=== PATIENT | female | born 1975 | race Two or more races ===

== ENCOUNTER 2018-10-23 10:43 | Emergency (ER) | payer MEDICAID ==
[~2018-10-23] VITALS: Ht 152.4 cm; Wt 63.3 kg
[~2018-10-23 10:43] MED LIST: OMEP40CA37 PO
[2018-10-23 11:34] LABS: CLARITY,URINE SLIGHTLY CLOUDY (Clear); COLOR,URINE YELLOW (Yellow); GLUCOSE, URINE NEGATIVE (Neg); KETONES,URINE NEGATIVE (Neg); LEUKOCYTE ESTERASE ,URINE NEGATIVE (Neg); NITRITES, URINE NEGATIVE (Neg); OCCULT BLOOD,URINE MODERATE (Neg); PROTEIN,URINE TRACE mg/dl (Neg); URINE HCG NEGATIVE (NEG); UROBILINOGEN,URINE 0.2 E.U/dL (0.2-1.0)
[2018-10-23 11:36] LABS: UA COLLECTION TYPE CLN CATCH MIDSTREAM
[2018-10-23 11:43] LABS: BACTERIA,URINE 2+ /HPF (Neg); MUCUS STRANDS MODERATE /LPF (Neg); SQUAMOUS EPITHELIAL CELL,UR MODERATE /LPF (FEW); WBC,URINE 0-4 /HPF (0-4)
[2018-10-23 12:26] LABS: BASOPHILS % (AUTO) 0.1 % (0-1); EOSINOPHILS % (AUTO) 0 % (0-6); HEMATOCRIT 40.2 % (35.0-45.0); HEMOGLOBIN 13.2 g/dl (12.0-16.0); LYMPHOCYTES # (AUTO) 0.5 X10'3 (1.1-4.8); MEAN CORPUSCULAR HEMOGLOBIN 29.4 PG (27.0-31.0); MEAN CORPUSCULAR HGB CONC 32.9 g/dL (33.0-36.5); MEAN CORPUSCULAR VOLUME 89.4 FL (78-98); MEAN PLATELET VOLUME 9.4 FL (7.4-10.4); MONOCYTES # (AUTO) 0.5 X10'3 (0-0.9); MONOCYTES % (AUTO) 5.4 % (2-12); NEUTROPHILS # (AUTO) 9.1 X10'3 (1.8-7.7); NEUTROPHILS % (AUTO) 89.5 % (42-75); PLATELET COUNT 244 X10'3 (140-440); RED CELL DISTRIBUTION WIDTH 13.9 % (11.5-14.5); WHITE BLOOD COUNT 10.2 X10'3 (4.5-11.0)
[2018-10-23 12:30] LABS: ALANINE AMINOTRANSFERASE 19 U/L (12-78); ALBUMIN 3.5 G/DL (3.4-5.0); ALBUMIN/GLOBULIN RATIO 0.9 (1.1-1.5); ALKALINE PHOSPHATASE 76 IU/L (46-116); ANION GAP 9 (8-16); ASPARTATE AMINO TRANSFERASE 16 U/L (10-37); BLOOD UREA NITROGEN 13 MG/DL (7-18); BUN/CREATININE RATIO 18.1 (6.6-38.0); CALCIUM 9.2 MG/DL (8.5-10.1); CHLORIDE 104 MMOL/L (99-107); CREATININE 0.72 MG/DL (0.40-0.90); GLUCOSE 113 MG/DL (70-104); LIPASE 113 U/L (73-393); POTASSIUM 3.7 MMOL/L (3.5-5.1); SODIUM 137 MMOL/L (135-145); TOTAL CARBON DIOXIDE 23.6 MMOL/L (24-32); TOTAL PROTEIN 7.6 G/DL (6.4-8.2); eGFR 89 ML/MIN
[2018-10-23 12:31] LABS: BILIRUBIN,TOTAL 0.5 MG/DL (0.1-1.0)
[2018-10-23] MEDS ORDERED: sucralfate 1gm/10ml UD suspension PO ONE (14:30)
[2018-10-23] MEDS ORDERED: pantoprazole 40mg Tablet.DR PO ONE (14:30)
[2018-10-23] MEDS ORDERED: SUCR1ORA12 PO (14:31)
[2018-10-23 14:52] VITALS: BP 112/43
== END 2018-10-23 14:54 | disposition home or self-care (01) ==
LOC: ER 10:44
DX: R10.12 Left upper quadrant pain (principal); R10.13 Epigastric pain; E11.9 Type 2 diabetes mellitus without complications; F41.9 Anxiety disorder, unspecified; Z88.8 Allergy status to other drugs, medicaments and biological substances; Z88.5 Allergy status to narcotic agent; Z79.899 Other long term (current) drug therapy
CPT/HCPCS: 36415; 74176; 80053; 81001; 81025; 83690; 85025; 99284

== ENCOUNTER 2020-10-19 16:21 | Emergency (ER) | payer MEDICAID ==
[~2020-10-19] VITALS: Ht 152.4 cm; Wt 63.6 kg
[~2020-10-19 16:21] MED LIST changes: +OMEP40CA13 PO; -OMEP40CA37 PO; +SUCR1ORA12 PO
--- NOTE | 2020-10-19 16:43 | NUR ---
Pt in CT
[2020-10-19 17:16] LABS: BASOPHILS % (AUTO) 0.5 % (0-1); EOSINOPHILS # (AUTO) 0.1 X10'3 (0-0.9); HEMATOCRIT 38.3 % (35.0-45.0); HEMOGLOBIN 12.9 g/dl (12.0-16.0); LYMPHOCYTES # (AUTO) 2.3 X10'3 (1.1-4.8); LYMPHOCYTES % (AUTO) 22.9 % (21-51); MEAN CORPUSCULAR HEMOGLOBIN 29.9 PG (27.0-31.0); MEAN CORPUSCULAR HGB CONC 33.7 g/dL (33.0-36.5); MEAN CORPUSCULAR VOLUME 88.6 FL (78-98); MEAN PLATELET VOLUME 9.3 FL (7.4-10.4); MONOCYTES # (AUTO) 0.6 X10'3 (0-0.9); MONOCYTES % (AUTO) 6.4 % (2-12); NEUTROPHILS # (AUTO) 6.8 X10'3 (1.8-7.7); NEUTROPHILS % (AUTO) 69.2 % (42-75); PLATELET COUNT 223 X10'3 (140-440); RED BLOOD COUNT 4.32 X10'6 (4.20-5.60); RED CELL DISTRIBUTION WIDTH 14.5 % (11.5-14.5); WHITE BLOOD COUNT 9.9 X10'3 (4.5-11.0)
[2020-10-19 17:26] LABS: PARTIAL THROMBOPLASTIN TIME 29 SECONDS (22-32)
[2020-10-19] MEDS ORDERED: NITR0.4T51 SL (17:27)
[2020-10-19] MEDS ORDERED: FERR-39 PO (17:27)
[2020-10-19 17:38] LABS: ALANINE AMINOTRANSFERASE 25 U/L (12-78); ALBUMIN 3.7 G/DL (3.4-5.0); ALBUMIN/GLOBULIN RATIO 0.9 (1.1-1.5); ALKALINE PHOSPHATASE 83 IU/L (46-116); ANION GAP 11 (8-16); ASPARTATE AMINO TRANSFERASE 18 U/L (10-37); BILIRUBIN,TOTAL 0.3 MG/DL (0.1-1.0); BLOOD UREA NITROGEN 13 MG/DL (7-18); BUN/CREATININE RATIO 17.1 (6.6-38.0); CALCIUM 9.4 MG/DL (8.5-10.1); CHLORIDE 104 MMOL/L (99-107); CREATININE 0.76 MG/DL (0.40-0.90); ETHANOL < 0.010 GM/DL (0.0-0.010); GLUCOSE 117 MG/DL (70-104); POTASSIUM 3.6 MMOL/L (3.5-5.1); SODIUM 137 MMOL/L (135-145); TOTAL CARBON DIOXIDE 21.7 MMOL/L (24-32); TOTAL PROTEIN 7.6 G/DL (6.4-8.2); eGFR 83 ML/MIN
[2020-10-19 17:50] LABS: URINE AMPHETAMINE SCREEN NEGATIVE (Neg); URINE BARBITUATE SCREEN NEGATIVE (Neg); URINE BENZODIAZEPINES SCREEN NEGATIVE (Neg); URINE CANNABINOID SCREEN NEGATIVE (Neg); URINE COCAINE SCREEN NEGATIVE (Neg); URINE METHADONE SCREEN NEGATIVE (Neg); URINE OPIATE SCREEN NEGATIVE (Neg); URINE PHENCYCLIDINE SCREEN NEGATIVE (Neg)
[2020-10-19 20:28] VITALS: BP 119/82
== END 2020-10-19 20:30 | disposition home or self-care (01) ==
LOC: ER 16:21
DX: R07.89 Other chest pain (principal); R11.0 Nausea; R06.02 Shortness of breath; R10.10 Upper abdominal pain, unspecified; E11.9 Type 2 diabetes mellitus without complications; F41.9 Anxiety disorder, unspecified; Z88.8 Allergy status to other drugs, medicaments and biological substances; Z79.899 Other long term (current) drug therapy
CPT/HCPCS: 36415; 70450; 71045; 80053; 80305; 80320; 82948; 84484; 85025; 85610; 85730; 93005; 99285

== ENCOUNTER 2022-04-02 20:39 | Inpatient (IN) | payer MEDICAID ==
[~2022-04-02] VITALS: Ht 149.9 cm; Wt 64.5 kg
[~2022-04-02 20:39] MED LIST changes: +FERR-39 PO; +NITR0.4T51 SL; -OMEP40CA13 PO; -SUCR1ORA12 PO
[2022-04-02 21:18] LABS: BASOPHILS % (AUTO) 0.3 % (0-1); EOSINOPHILS % (AUTO) 0.4 % (0-6); HEMATOCRIT 38.3 % (35.0-45.0); HEMOGLOBIN 12.8 g/dl (12.0-16.0); LYMPHOCYTES # (AUTO) 2.2 X10'3 (1.1-4.8); LYMPHOCYTES % (AUTO) 27.2 % (21-51); MEAN CORPUSCULAR HEMOGLOBIN 29.3 PG (27.0-31.0); MEAN CORPUSCULAR HGB CONC 33.4 g/dL (33.0-36.5); MEAN CORPUSCULAR VOLUME 87.8 FL (78-98); MEAN PLATELET VOLUME 8.7 FL (7.4-10.4); MONOCYTES # (AUTO) 0.5 X10'3 (0-0.9); MONOCYTES % (AUTO) 5.6 % (2-12); NEUTROPHILS # (AUTO) 5.5 X10'3 (1.8-7.7); NEUTROPHILS % (AUTO) 66.5 % (42-75); PLATELET COUNT 267 X10'3 (140-440); RED BLOOD COUNT 4.36 X10'6 (4.20-5.60); RED CELL DISTRIBUTION WIDTH 14.8 % (11.5-14.5); WHITE BLOOD COUNT 8.2 X10'3 (4.5-11.0)
[2022-04-02 21:29] LABS: APTT 27 SECONDS (22-32)
[2022-04-02 21:34] LABS: ALANINE AMINOTRANSFERASE 19 U/L (12-78); ALBUMIN 3.9 G/DL (3.4-5.0); ALKALINE PHOSPHATASE 95 IU/L (46-116); ANION GAP 7 (8-16); ASPARTATE AMINO TRANSFERASE 14 U/L (10-37); BILIRUBIN,TOTAL 0.2 MG/DL (0.1-1.0); BLOOD UREA NITROGEN 10 MG/DL (7-18); BUN/CREATININE RATIO 15.4 (6.6-38.0); CALCIUM 9.2 MG/DL (8.5-10.1); CHLORIDE 107 MMOL/L (99-107); CREATININE 0.65 MG/DL (0.40-0.90); GLUCOSE 124 MG/DL (70-104); POTASSIUM 3.9 MMOL/L (3.5-5.1); SODIUM 140 MMOL/L (135-145); TOTAL CARBON DIOXIDE 25.8 MMOL/L (24-32); TOTAL PROTEIN 7.7 G/DL (6.4-8.2); eGFR > 90 ML/MIN
--- NOTE | 2022-04-03 02:20 | NUR ---
PT MOVED TO BED 8. NICOLE MYERS MONITORING PT I'M BUSY WITH 2 NEW PATIENTS.
--- NOTE | 2022-04-03 02:57 | NUR ---
TELENEUROLOGIST SPEAKING TO PT IN ROOM.
[2022-04-03] MEDS ORDERED: magnesium 4gm in 100ml NS 100 ML IV PRN (04:45)
[2022-04-03] MEDS ORDERED: magnesium Cl slow-release 64mg tablet PO PRN (04:45)
[2022-04-03] MEDS ORDERED: acetaminophen 325mg tablet PO PRN (04:45)
[2022-04-03] MEDS ORDERED: ondansetron/PF 4mg/2ml inj IV PRN (04:45)
[2022-04-03] MEDS ORDERED: POTASSIUM BICARB 20meq eff tab 20 MEQ TABLET.EFF PO PRN ×2 (04:45)
[2022-04-03] MEDS ORDERED: mag hydrox/Alum hydrox/simeth 30ml oral suspension PO PRN (04:45)
[2022-04-03] MEDS ORDERED: magnesium hydroxide 30ml (MOM) UD suspension PO PRN (04:45)
[2022-04-03] MEDS ORDERED: potassium CL 10mEq/100ml bag 100 ML IV PRN (04:45)
[2022-04-03] MEDS ORDERED: magnesium 2GM in 50ml NS 50 ML IV PRN (04:45)
[2022-04-03] MEDS ORDERED: MESSAGE TO PHARMACY PO ONE (05:25)
[2022-04-03] MEDS ORDERED: insulin Lispro (HumaLOG) vial - multi-dose SQ SCH (05:25)
[2022-04-03] MEDS ORDERED: glucagon, human recombinant 1mg kit SUBCUT PRN (05:25)
[2022-04-03] MEDS ORDERED: DEXTROSE 15 GM of carb/4 tabs (each vial/BOTTLE has 4 tablets) PO PRN ×2 (05:25)
[2022-04-03] MEDS ORDERED: dextrose 50%-water 50ml dispensing syringe IV PRN ×2 (05:25)
[2022-04-03 06:38] LABS: MAGNESIUM 1.9 MG/DL (1.5-2.4); POTASSIUM 3.8 MMOL/L (3.5-5.1)
[2022-04-03] MEDS: K and/or MAG REPLACEMENT MC SCH ×2 (07:28→20:00)
[2022-04-03] MEDS: docusate sod 100mg capsule PO SCH ×2 (08:00→20:49)
[2022-04-03] MEDS: aspirin 81mg tab.chew PO SCH (08:49)
[2022-04-03] MEDS: atorvastatin 20mg tablet PO SCH (08:49)
[2022-04-03] MEDS: enoxaparin 40mg/0.4ml syringe SUBCUT SCH (08:49)
--- NOTE | 2022-04-03 09:16 | NUR ---
remanufacturing technician at bedside.
[2022-04-03] MEDS ORDERED: FMLOS LEFTEYE (10:02)
[2022-04-03] MEDS ORDERED: CHOL20002 PO (10:02)
[2022-04-03] MEDS ORDERED: TOPI25TA49 PO (10:02)
[2022-04-03] MEDS: fluorometholone 0.1% ophthalmic suspension 5ml bottle LEFTEYE SCH ×3 (12:47→21:00)
[2022-04-03 15:18] VITALS: BP 120/70
[2022-04-03] MEDS ORDERED: GADOTERATE MEGLUMINE 7.5 MMOL/15 ML VIAL IV ONE (17:07)
[2022-04-03 18:00] VITALS: BP 119/79
--- NOTE | 2022-04-03 18:00 | NUR ---
Patient in room PCU 3012. I have received report from RN and had the opportunity to ask questions and assume patient care.
[2022-04-03] MEDS ORDERED: topiramate 25mg tablet PO ONE (20:40)
[2022-04-03] MEDS: topiramate 25mg tablet PO SCH (20:55)
[2022-04-03] MEDS ORDERED: insulin glargine (Lantus) pen - multi-dose SQ SCH (21:00)
[2022-04-03 22:00] VITALS: BP 124/67
[2022-04-04 02:00] VITALS: BP 95/57
[2022-04-04] MEDS: enoxaparin 40mg/0.4ml syringe SUBCUT SCH (07:44)
[2022-04-04] MEDS: docusate sod 100mg capsule PO SCH (07:45)
[2022-04-04] MEDS: atorvastatin 20mg tablet PO SCH (07:45)
[2022-04-04] MEDS: topiramate 25mg tablet PO SCH (07:45)
[2022-04-04] MEDS: aspirin 81mg tab.chew PO SCH (07:51)
[2022-04-04] MEDS: fluorometholone 0.1% ophthalmic suspension 5ml bottle LEFTEYE SCH ×2 (07:52→13:45)
[2022-04-04] MEDS: K and/or MAG REPLACEMENT MC SCH (07:56)
[2022-04-04] MEDS ORDERED: cholecalciferol (vitamin D3) 1,000 unit (25mcg) tablet PO SCH (08:00)
[2022-04-04 08:29] LABS: EOSINOPHILS # (AUTO) 0.2 X10'3 (0-0.9); MONOCYTES # (AUTO) 0.5 X10'3 (0-0.9); NEUTROPHILS # (AUTO) 3.3 X10'3 (1.8-7.7)
[2022-04-04 08:33] LABS: BASOPHILS % (AUTO) 0.6 % (0-1); EOSINOPHILS % (AUTO) 2.9 % (0-6); HEMATOCRIT 37.7 % (35.0-45.0); HEMOGLOBIN 12.5 g/dl (12.0-16.0); LYMPHOCYTES # (AUTO) 1.9 X10'3 (1.1-4.8); LYMPHOCYTES % (AUTO) 32.9 % (21-51); MEAN CORPUSCULAR HEMOGLOBIN 29.6 PG (27.0-31.0); MEAN CORPUSCULAR HGB CONC 33.2 g/dL (33.0-36.5); MEAN CORPUSCULAR VOLUME 89.1 FL (78-98); MEAN PLATELET VOLUME 9.4 FL (7.4-10.4); MONOCYTES % (AUTO) 8.5 % (2-12); NEUTROPHILS % (AUTO) 55.1 % (42-75); PLATELET COUNT 260 X10'3 (140-440); RED BLOOD COUNT 4.24 X10'6 (4.20-5.60); RED CELL DISTRIBUTION WIDTH 14.6 % (11.5-14.5); WHITE BLOOD COUNT 5.9 X10'3 (4.5-11.0)
[2022-04-04 08:37] LABS: ALANINE AMINOTRANSFERASE 18 U/L (12-78); ALBUMIN 3.3 G/DL (3.4-5.0); ALBUMIN/GLOBULIN RATIO 0.9 (1.1-1.5); ALKALINE PHOSPHATASE 56 IU/L (46-116); ANION GAP 9 (8-16); ASPARTATE AMINO TRANSFERASE 13 U/L (10-37); BILIRUBIN,TOTAL 0.4 MG/DL (0.1-1.0); BLOOD UREA NITROGEN 14 MG/DL (7-18); BUN/CREATININE RATIO 19.4 (6.6-38.0); CALCIUM 8.7 MG/DL (8.5-10.1); CHLORIDE 106 MMOL/L (99-107); CREATININE 0.72 MG/DL (0.40-0.90); GLUCOSE 98 MG/DL (70-104); SODIUM 139 MMOL/L (135-145); TOTAL CARBON DIOXIDE 24.3 MMOL/L (24-32); TOTAL PROTEIN 6.8 G/DL (6.4-8.2); eGFR 88 ML/MIN
[2022-04-04 10:09] VITALS: BP 93/52
--- NOTE | 2022-04-04 13:51 | NUR ---
Notified Dr. Márquez that A.V. has completed MRI, is she clear to D/C?
--- NOTE | 2022-04-04 14:59 | NUR ---
Notified Dr. Márquez [id number] A.V. The med req has not been finalized for the discharge.
--- NOTE | 2022-04-04 15:00 | NUR ---
Pt discharged from hospital via wheelchair to private vehicle. Pt education on when to return to the ER, medications, labs, follow up appointments, and discharge instructions. Pt stated they had no questions or concerns at this time. Tele box returned to [employer], IV removed and patient sent home with all belongings.
== END 2022-04-04 15:52 | disposition home or self-care (01) | DRG 58 ==
LOC: ER 20:40 → ED HOLD 04-03 04:46 → PCU 3S 04-03 15:05
PROVIDERS: ADMIT Internal Medicine; ATTEND Internal Medicine
DX: G81.94 Hemiplegia, unspecified affecting left nondominant side (principal); E11.9 Type 2 diabetes mellitus without complications; F41.9 Anxiety disorder, unspecified; I25.10 Atherosclerotic heart disease of native coronary artery without angina pectoris; Z79.899 Other long term (current) drug therapy; Z82.49 Family history of ischemic heart disease and other diseases of the circulatory system; Z88.5 Allergy status to narcotic agent; Z79.82 Long term (current) use of aspirin
CPT/HCPCS: 36415; 70450; 70553; 71045; 72141; 80053; 82948; 83036; 83735; 84132; 85025; 85610; 85730; 93306; 93880; 99285; A9575; G0378; J1650; J1815

== ENCOUNTER 2022-05-11 17:50 | Inpatient (IN) | payer MEDICAID ==
[~2022-05-11] VITALS: Ht 152.4 cm; Wt 64.5 kg
[~2022-05-11 17:50] MED LIST changes: +CHOL20002 PO; -FERR-39 PO; +FMLOS LEFTEYE; -NITR0.4T51 SL; +TOPI25TA49 PO
[2022-05-11 18:38] LABS: APTT 30 SECONDS (22-32); BASOPHILS # (AUTO) 0.1 X10'3 (0-0.2); BASOPHILS % (AUTO) 1.7 % (0-1); EOSINOPHILS # (AUTO) 0.1 X10'3 (0-0.9); EOSINOPHILS % (AUTO) 1.7 % (0-6); HEMOGLOBIN 13.1 g/dl (12.0-16.0); LYMPHOCYTES # (AUTO) 2.6 X10'3 (1.1-4.8); LYMPHOCYTES % (AUTO) 31.2 % (21-51); MEAN CORPUSCULAR HGB CONC 33.6 g/dL (33.0-36.5); MEAN CORPUSCULAR VOLUME 89.1 FL (78-98); MEAN PLATELET VOLUME 9.2 FL (7.4-10.4); MONOCYTES # (AUTO) 0.5 X10'3 (0-0.9); MONOCYTES % (AUTO) 5.6 % (2-12); NEUTROPHILS # (AUTO) 4.9 X10'3 (1.8-7.7); NEUTROPHILS % (AUTO) 59.8 % (42-75); PLATELET COUNT 245 X10'3 (140-440); RED BLOOD COUNT 4.37 X10'6 (4.20-5.60); RED CELL DISTRIBUTION WIDTH 14.9 % (11.5-14.5); WHITE BLOOD COUNT 8.2 X10'3 (4.5-11.0)
[2022-05-11 18:40] LABS: ALANINE AMINOTRANSFERASE 19 U/L (12-78); ALBUMIN 3.9 G/DL (3.4-5.0); ALKALINE PHOSPHATASE 82 IU/L (46-116); ANION GAP 9 (8-16); ASPARTATE AMINO TRANSFERASE 18 U/L (10-37); BILIRUBIN,TOTAL 0.2 MG/DL (0.1-1.0); BLOOD UREA NITROGEN 9 MG/DL (7-18); BUN/CREATININE RATIO 11.1 (6.6-38.0); CALCIUM 9.1 MG/DL (8.5-10.1); CHLORIDE 106 MMOL/L (99-107); CREATININE 0.81 MG/DL (0.40-0.90); GLUCOSE 97 MG/DL (70-104); POTASSIUM 3.7 MMOL/L (3.5-5.1); SODIUM 141 MMOL/L (135-145); TOTAL CARBON DIOXIDE 26.3 MMOL/L (24-32); TOTAL PROTEIN 7.8 G/DL (6.4-8.2); eGFR 76 ML/MIN
[2022-05-12] MEDS ORDERED: iohexol 350MG/ML 100ml bottle IV ONE (07:16)
--- NOTE | 2022-05-12 07:45 | NUR ---
To ct scan.
[2022-05-12] MEDS: ringers solution, lacted 1,000 ML IV SCH ×2 (09:15→16:30)
[2022-05-12] MEDS ORDERED: magnesium Cl slow-release 64mg tablet PO PRN (10:45)
[2022-05-12] MEDS ORDERED: acetaminophen 325mg tablet PO PRN ×2 (10:45)
[2022-05-12] MEDS ORDERED: POTASSIUM BICARB 20meq eff tab 20 MEQ TABLET.EFF PO PRN ×2 (10:45)
[2022-05-12] MEDS ORDERED: magnesium hydroxide 30ml (MOM) UD suspension PO PRN (10:45)
[2022-05-12] MEDS ORDERED: magnesium 2GM in 50ml NS 50 ML IV PRN (10:45)
[2022-05-12] MEDS ORDERED: ondansetron/PF 4mg/2ml inj IV PRN (10:45)
[2022-05-12] MEDS ORDERED: potassium CL 10mEq/100ml bag 100 ML IV PRN (10:45)
[2022-05-12] MEDS ORDERED: mag hydrox/Alum hydrox/simeth 30ml oral suspension PO PRN (10:45)
[2022-05-12] MEDS ORDERED: PERFLUTREN PROTEIN-A MICROSPHR (Optison) 0.22 MG/ML 3ML VIAL IV ONE (10:45)
[2022-05-12] MEDS ORDERED: bisacodyl 10mg suppository rectal RC PRN (10:45)
[2022-05-12] MEDS ORDERED: acetaminophen 650mg rectal suppository RC PRN (10:45)
[2022-05-12] MEDS ORDERED: magnesium 4gm in 100ml NS 100 ML IV PRN (10:45)
[2022-05-12] MEDS ORDERED: diphenhydrAMINE 25mg capsule PO PRN (10:45)
[2022-05-12] MEDS ORDERED: aspirin 325mg tablet PO ONE (10:45)
[2022-05-12 11:33] LABS: CHOLESTEROL 177 MG/DL (0-200); HDL CHOLESTEROL 59 MG/DL (35-60); LDL CHOLESTEROL 99 MG/DL (50-100); TRIGLYCERIDES 135 MG/DL (20-135)
[2022-05-12] MEDS: normal saline 1000ml 1,000 ML IV SCH ×3 (12:37→16:53)
--- NOTE | 2022-05-12 12:44 | NUR ---
anali at bedside did the general asseement and [facility] ,Refusing engineer specialist at this time,pt understand lith[place]ian ,unable to carry on big conversation.
--- NOTE | 2022-05-12 13:42 | NUR ---
MRI SCREENING FORM FAXED AT 1880 .
--- NOTE | 2022-05-12 16:10 | NUR ---
PT REPORT CALLED TO JACOB , PER JACOB IF THE PT IS GETTING D/C AFTER THE MRI THEN IT WOULD BE WASTE OF BED ,INFORMED THAT MRI RESULT IS PENDING AND NOT SURE WHETHER PT WILL BE STAYING OR NOT ,PT HAS 2/10 HEADACHE NO OTHER SYMPS ,CALLED DR DELCID AND SPOKE TO HIM REGARDING PT ROOM ASSISGNMENT AND PENDING MRI RESULTS PER HOLD THE PT IN ER FOR RGT NOW HE WILL REVIEW THE MRI AND COME SEE THE PT .NOTIFIED CHARGE MARQUISE.
--- NOTE | 2022-05-12 18:02 | NUR ---
MRI IS RESULTED ,DR DELCID AT NURSES STATION .
[2022-05-12 18:13] LABS: CLARITY,URINE SLIGHTLY CLOUDY (Clear); COLOR,URINE YELLOW (Yellow); GLUCOSE, URINE NEGATIVE (Neg); KETONES,URINE NEGATIVE (Neg); LEUKOCYTE ESTERASE ,URINE NEGATIVE (Neg); NITRITES, URINE NEGATIVE (Neg); OCCULT BLOOD,URINE TRACE-INTACT (Neg); PH,URINE 7.5 (4.8-8.0); PROTEIN,URINE NEGATIVE (Neg); UROBILINOGEN,URINE 0.2 E.U/dL (0.2-1.0)
[2022-05-12 18:18] LABS: UA COLLECTION TYPE CLN CATCH MIDSTREAM
[2022-05-12 18:21] LABS: BACTERIA,URINE 2+ /HPF (Neg); MUCUS STRANDS FEW /LPF (Neg); RBC,URINE 0-2 /HPF (0-2); SQUAMOUS EPITHELIAL CELL,UR MANY /LPF (FEW)
[2022-05-12 19:34] VITALS: BP 128/72
[2022-05-12] MEDS ORDERED: K and/or MAG REPLACEMENT MC SCH (20:00)
[2022-05-12] MEDS ORDERED: docusate sod 100mg capsule PO SCH (20:00)
[2022-05-12] MEDS ORDERED: heparin, porcine 5000 units/ml vial SQ SCH (20:00)
[2022-05-13] MEDS ORDERED: atorvastatin 10mg tablet PO SCH (08:00)
[2022-05-13] MEDS ORDERED: aspirin 81mg, enteric-coated 1 TAB TABLET.DR PO SCH (08:00)
== END 2022-05-12 19:51 | disposition home or self-care (01) | DRG 54 ==
LOC: ER 17:51 → ED HOLD 05-12 10:51
PROVIDERS: ADMIT Family Medicine; ATTEND Family Medicine
PROC: B3251ZZ Computerized Tomography (CT Scan) of Bilateral Common Carotid Arteries using Low Osmolar Contrast (ICD-10-PCS; principal; 2022-05-12)
PROC: B32G1ZZ Computerized Tomography (CT Scan) of Bilateral Vertebral Arteries using Low Osmolar Contrast (ICD-10-PCS; 2022-05-12)
PROC: B32R1ZZ Computerized Tomography (CT Scan) of Intracranial Arteries using Low Osmolar Contrast (ICD-10-PCS; 2022-05-12)
PROC: B3281ZZ Computerized Tomography (CT Scan) of Bilateral Internal Carotid Arteries using Low Osmolar Contrast (ICD-10-PCS; 2022-05-12)
DX: G43.009 Migraine without aura, not intractable, without status migrainosus (principal); E11.9 Type 2 diabetes mellitus without complications; R20.0 Anesthesia of skin; F41.9 Anxiety disorder, unspecified; Z82.3 Family history of stroke; Z82.49 Family history of ischemic heart disease and other diseases of the circulatory system; Z82.5 Family history of asthma and other chronic lower respiratory diseases; Z98.51 Tubal ligation status; Z88.5 Allergy status to narcotic agent
CPT/HCPCS: 36415; 70450; 70496; 70498; 70551; 71045; 80053; 80061; 81001; 82948; 83036; 85025; 85610; 85651; 85730; 92508; 92616; 99285; G0378; J3490; J7030; J7120; Q9967

== ENCOUNTER 2024-01-01 16:13 | Outpatient (CLI) | payer MEDICAID ==
[~2024-01-01 16:13] MED LIST changes: -FMLOS LEFTEYE; -TOPI25TA49 PO
== END 2024-01-01 23:59 | disposition home or self-care (01) ==
LOC: RAD 16:13
PROVIDERS: ATTEND Family Medicine
DX: R10.2 Pelvic and perineal pain (principal)
CPT/HCPCS: 76856; 93976